=== PATIENT | male | born 1970 | race Caucasian/White ===

== ENCOUNTER 2019-10-07 06:32 | Emergency (ER) | payer BC ==
[~2019-10-07] VITALS: Ht 167.6 cm; Wt 95.0 kg
[~2019-10-07 06:32] MED LIST: ASPI81CH33 PO; LISI20TA20 PO; MULT1TAB8 PO; OMEP10CASR PO
[2019-10-07] MEDS ORDERED: NORCO, ANEXSIA 5/325MG TABLET (HYDROcodone/ACETAMINOPHEN) PO ONE (07:45)
--- NOTE | 2019-10-07 07:57 | REP ---
Clinical: Right shoulder pain with decreased range of motion . Technique: Internal rotation, external rotation, and Y view right shoulder . Findings: No acute fracture or dislocation. The acromioclavicular and glenohumeral joints are intact. No periarticular calcifications or degenerative changes are appreciated. Sub acromial space is normal. Surrounding soft tissues are unremarkable. Impression: Normal right shoulder radiographs. Electronically Signed by Nathan Bush MD 10/07/2019 07:49 A
[2019-10-07 08:09] LABS: BASO % 0.3 % (0.0-1.0); EOS # 0.2 10^3/uL (0.0-0.5); EOS % 1.3 % (0.0-3.0); HEMATOCRIT 40.5 % (42.0-52.0); HEMOGLOBIN 13.6 g/dl (13.5-17.5); LYMPH # 2.1 10^3/uL (1.5-5.0); MEAN CORPUSCULAR HEMOGLOBIN 28.3 pg (27.0-33.0); MEAN CORPUSCULAR HGB CONC 33.6 g/dl (32.0-36.5); MEAN CORPUSCULAR VOLUME 84.2 fl (80.0-96.0); MONO % 7.7 % (0.0-5.0); NEUTROPHILS # 9.1 10^3/uL (1.5-8.5); NEUTROPHILS % 73.2 % (36.0-66.0); PLATELET COUNT, AUTOMATED 279 10^3/uL (150-450); RED BLOOD COUNT 4.81 10^6/uL (4.30-6.10); WHITE BLOOD COUNT 12.4 10^3/uL (4.0-10.0)
[2019-10-07 09:10] LABS: CK-MB VALUE MASS < 1.0 NG/ML (<3.6); CPK CREATINE PHOSPHOKINASE 79 U/L (39-308); MB/CK RELATIVE INDEX 1.27 (< OR =4); TROPONIN I < 0.02 NG/ML (< 0.10)
[2019-10-07 09:45] LABS: APPEARANCE, URINE CLEAR (CLEAR); BACTERIA, URINE AUTO 1+ (NEGATIVE); BILIRUBIN, URINE AUTO NEGATIVE (NEGATIVE); BLOOD, URINE BLOOD NEGATIVE (NEGATIVE); COLOR, URINE YELLOW (YELLOW); GLUCOSE, URINE (UA) AUTO NEGATIVE (NEGATIVE); KETONE, URINE AUTO NEGATIVE (NEGATIVE); LEUKOCYTE ESTERASE, URINE AUTO NEGATIVE (NEGATIVE); NITRITE, URINE AUTO NEGATIVE (NEGATIVE); PROTEIN, URINE AUTO NEGATIVE (NEGATIVE); RBC, URINE AUTO 2 /HPF (0-3); SPECIFIC GRAVITY URINE AUTO 1.019 (1.002-1.035); SQUAMOUS EPITHELIAL CELL UR AU 1 /HPF (0-6); UROBILINOGEN, URINE AUTO 0.2 mg/dL (0.0-2.0); WBC, URINE AUTO 4 /HPF (0-3)
[2019-10-07] MEDS ORDERED: TYLETAB14 PO (10:00)
[2019-10-07] MEDS ORDERED: LOSA100T50 PO (10:00)
[2019-10-07 10:05] VITALS: BP 156/90
--- NOTE | 2019-10-07 17:51 | ECGEPIP ---
[facility] - ED Test Date: 2019-10-07 Pat Name: ISABELL MCCRAY Department: Room: - Gender: Male [employer]: : 1970 Requested By: EVELYN Dow PA-C Order Number: [id number] Reading MD: Alva Yeboah Measurements Intervals [place] Rate: 70 P: 53 NH: 172 QRS: 21 QRSD: 98 T: 5 QT: 373 QTc: 403 Interpretive Statements SINUS RHYTHM NSTTW abnormalities DECREASED RATE 07/25/17 Electronically Signed on 10-07-2019 17:51:25 EDT by Alva Yeboah
== END 2019-10-07 10:09 | disposition home or self-care (01) ==
LOC: M ED 06:32
DX: M25.511 Pain in right shoulder (principal); I10 Essential (primary) hypertension; K21.9 Gastro-esophageal reflux disease without esophagitis; E03.9 Hypothyroidism, unspecified

== ENCOUNTER → 2019-12-10 | Outpatient (CLI) | payer BC ==
[~2019-12-10] MED LIST changes: +LOSA100T50 PO; +TYLETAB14 PO
--- NOTE | 2019-12-18 07:24 | REP ---
MRI RIGHT SHOULDER HISTORY: Calcific tendonitis, pain. TECHNIQUE: Multiple sequences obtained in the axial, coronal oblique and sagittal oblique planes. FINDINGS: On T2-weighted images, there is ill-defined high signal in the supraspinatus tendon compatible with tendinopathy/tendonitis. I do not see a discrete rotator cuff tendon tear. There are moderate hypertrophic degenerative changes of the acromioclavicular joint. Acromion is type 2. Biceps tendon is within the bicipital groove with no tenosynovitis. There is no Hill-Sachs deformity. The deltoid muscle demonstrates no abnormal signal. There appears to fraying of the biceps labral complex and adjacent superior labrum. There appears to be a tear more posteriorly of the superior labrum and also extending into the superior aspect of the posterior labrum. There is an adjacent 3 mm paralabral cyst at this location. No other definite labral tear is seen. Several small subcortical cysts are seen in the superolateral humeral head. A small subchondral cyst is seen in the inferior glenoid. There is mild chondromalacia of the glenohumeral joint. A small amount of fluid is seen in the subacromial and subdeltoid bursa. IMPRESSION: [id number] supraspinatus tendinopathy/tendonitis. No definite rotator cuff tendon tear. Moderate hypertrophic degenerative changes of the acromioclavicular joint with a type 2 acromion. There is fraying of the biceps labral complex and adjacent superior labrum. There does appear to be a tear of the posterior aspect of the superior labrum extending into the superior aspect of the posterior labrum. There is an associated 3 mm paralabral cyst. Mild chondromalacia of the glenohumeral joint. Mild fluid in the subacromial and subdeltoid bursa may indicate an element of bursitis. MTDD
== END ==
LOC: M RAD 15:40
PROVIDERS: ATTEND Orthopaedic Surgery Sports Medicine
DX: M75.31 Calcific tendinitis of right shoulder (principal)

== ENCOUNTER → 2020-01-30 | Outpatient (REF) | payer BC ==
[2020-01-30 14:29] LABS: ALBUMIN 4.1 GM/DL (3.2-5.2); ALT/SGPT 38 U/L (12-78); BILIRUBIN,TOTAL 0.4 MG/DL (0.2-1.0); BLOOD UREA NITROGEN 17 MG/DL (7-18); CALCIUM LEVEL 9.3 MG/DL (8.5-10.1); CARBON DIOXIDE LEVEL 30 MEQ/L (21-32); CHLORIDE LEVEL 103 MEQ/L (98-107); CHOLESTEROL LEVEL 280 MG/DL (<200); CHOLESTEROL RISK RATIO 6.829 (<5); CREATININE FOR GFR 0.89 MG/DL (0.70-1.30); GLOMERULAR FILTRATION RATE > 60.0 (>56); GLUCOSE, FASTING 92 MG/DL (70-100); HDL CHOLESTEROL 41 MG/DL (>40); LDL CHOLESTEROL 192 MG/DL (<100); NON-HDL-C 239 MG/DL; POTASSIUM SERUM 4.7 MEQ/L (3.5-5.1); SODIUM LEVEL 139 MEQ/L (136-145); TOTAL PROTEIN 7.6 GM/DL (6.4-8.2); TRIGLYCERIDES LEVEL 236 MG/DL (<150)
== END ==
LOC: M SFHCADAM 08:32
PROVIDERS: ATTEND Family Medicine
DX: Z00.00 Encounter for general adult medical examination without abnormal findings (principal); R10.11 Right upper quadrant pain; E66.9 Obesity, unspecified; Z12.5 Encounter for screening for malignant neoplasm of prostate
CPT/HCPCS: 80053; 80061; G0103